=== PATIENT | male | born 1990 | race Caucasian/White ===

== ENCOUNTER 2021-10-29 05:39 | Emergency (ER) | payer SELFPAY ==
[~2021-10-29] VITALS: Ht 177.8 cm; Wt 68.0 kg
[2021-10-29 05:41] VITALS: BP 134/78
== END 2021-10-29 05:52 | disposition home or self-care (01) ==
LOC: ER 05:39
DX: Z00.00 Encounter for general adult medical examination without abnormal findings (principal)
CPT/HCPCS: 99283